=== PATIENT | female | born 1940 | race Caucasian/White ===

== ENCOUNTER → 2022-09-30 09:26 | Outpatient (BNVA) | payer MEDICARE, SELFPAY | PROVIDERS: PCP Physician Assistant; Visit Provider Internal Medicine Rheumatology | DX: M35.3 Polymyalgia rheumatica (principal); Z79.899 Other long term (current) drug therapy; M19.90 Unspecified osteoarthritis, unspecified site; Z11.59 Encounter for screening for other viral diseases; Z96.659 Presence of unspecified artificial knee joint; M18.0 Bilateral primary osteoarthritis of first carpometacarpal joints | CPT/HCPCS: 36415; 80076; 82306; 82565; 85025; 85651; 86480; 86704; 86803; 87340; 99204 ==

== ENCOUNTER → 2022-12-23 12:38 | Outpatient (BNVA) | payer MEDICARE, SELFPAY | PROVIDERS: PCP Physician Assistant; Visit Provider Internal Medicine Rheumatology | DX: Z79.899 Other long term (current) drug therapy (principal); M35.3 Polymyalgia rheumatica | CPT/HCPCS: 36415; 80076; 82310; 82565; 83735; 84100; 84132; 85025; 86140; 99214 ==

== ENCOUNTER 2022-12-29 08:41 | Outpatient (CLI) | payer MEDICARE, SELFPAY ==
--- NOTE | 2022-12-29 08:45 | USCV_ITS ---
Damion Chantal Age: 82 Gender: F : 1940 Exam Date: 12/29/2022 08:53 Ordering Phys: Aaron Mack MD Technologist: [place] [facility] [place]: PROCEDURES: The venous duplex Doppler examination of both lower extremities was performed in the standard fashion. Bilaterally, the common femoral, superficial femoral, profunda femoral, popliteal, posterior tibial, greater saphenous veins, and the peroneal trunk were identified and interrogated in the standard fashion. These veins were found to be easily compressible with spontaneous blood flow. No evidence of insufficiency or thrombus noted. FINDINGS: no dvt, bakers cyst on left with debris CONCLUSIONS No evidence of right lower extremity DVT. No evidence of left lower extremity DVT. Left popliteal cyst measuring 2.2 x 2.3 x 7.3 cm with internal debris and septations Eugene Stevenson MD (Electronically Signed) Final Date: 29 December 2022 10:03 S
== END 2022-12-29 08:42 | disposition home or self-care (01) ==
PROVIDERS: PCP Physician Assistant; Visit Provider Internal Medicine Rheumatology
DX: I82.402 Acute embolism and thrombosis of unspecified deep veins of left lower extremity (principal); M71.22 Synovial cyst of popliteal space [Baker], left knee
CPT/HCPCS: 36415; 80076; 82310; 82565; 83735; 84100; 84132; 85025; 86140; 93970; 99214

== ENCOUNTER → 2023-02-22 14:12 | Outpatient (BNVA) | payer MEDICARE, SELFPAY | PROVIDERS: PCP Physician Assistant; Visit Provider Internal Medicine Rheumatology | DX: Z79.899 Other long term (current) drug therapy (principal); M35.3 Polymyalgia rheumatica; Z96.659 Presence of unspecified artificial knee joint; M18.0 Bilateral primary osteoarthritis of first carpometacarpal joints | CPT/HCPCS: 36415; 80076; 82085; 82310; 82550; 82565; 83735; 84100; 84132; 85025; 86140; 99214 ==

== ENCOUNTER → 2023-04-13 11:30 | Outpatient (BNVA) | payer MEDICARE, SELFPAY | PROVIDERS: PCP Physician Assistant; Visit Provider Internal Medicine Rheumatology | DX: Z79.899 Other long term (current) drug therapy (principal); M35.3 Polymyalgia rheumatica; M70.60 Trochanteric bursitis, unspecified hip; Z96.659 Presence of unspecified artificial knee joint; M18.0 Bilateral primary osteoarthritis of first carpometacarpal joints | CPT/HCPCS: 99214 ==

== ENCOUNTER → 2023-08-11 13:42 | Outpatient (BNVA) | payer MEDICARE, SELFPAY | PROVIDERS: PCP Physician Assistant; Visit Provider Internal Medicine Rheumatology | DX: Z79.899 Other long term (current) drug therapy (principal); M35.3 Polymyalgia rheumatica; Z96.659 Presence of unspecified artificial knee joint; M18.0 Bilateral primary osteoarthritis of first carpometacarpal joints | CPT/HCPCS: 36415; 80076; 82565; 85025; 85651; 86140; 99214 ==

== ENCOUNTER → 2023-09-13 13:36 | Outpatient (BNVA) | payer MEDICARE, SELFPAY | PROVIDERS: PCP Physician Assistant; Visit Provider Internal Medicine Rheumatology | DX: Z79.899 Other long term (current) drug therapy (principal); M35.3 Polymyalgia rheumatica; Z96.659 Presence of unspecified artificial knee joint; M18.0 Bilateral primary osteoarthritis of first carpometacarpal joints | CPT/HCPCS: 99214 ==

== ENCOUNTER → 2023-11-22 13:55 | Outpatient (BNVA) | payer MEDICARE, SELFPAY | PROVIDERS: PCP Physician Assistant; Visit Provider Internal Medicine Rheumatology | DX: Z79.899 Other long term (current) drug therapy (principal); M35.3 Polymyalgia rheumatica; Z96.659 Presence of unspecified artificial knee joint; M18.0 Bilateral primary osteoarthritis of first carpometacarpal joints; M79.7 Fibromyalgia | CPT/HCPCS: 99214 ==

== ENCOUNTER → 2024-01-25 13:36 | Outpatient (BNVA) | payer MEDICARE, SELFPAY | PROVIDERS: PCP Physician Assistant; Visit Provider Internal Medicine Rheumatology | DX: M35.3 Polymyalgia rheumatica (principal); M18.0 Bilateral primary osteoarthritis of first carpometacarpal joints; M79.7 Fibromyalgia; M13.80 Other specified arthritis, unspecified site; Z96.651 Presence of right artificial knee joint; Z79.899 Other long term (current) drug therapy; Z11.1 Encounter for screening for respiratory tuberculosis; Z11.59 Encounter for screening for other viral diseases; Z71.85 Encounter for immunization safety counseling | CPT/HCPCS: 36415; 80076; 82565; 85025; 85651; 86140; 99214 ==

== ENCOUNTER → 2024-06-13 12:56 | Outpatient (BNVA) | payer MEDICARE, SELFPAY | PROVIDERS: PCP Physician Assistant; Visit Provider Internal Medicine Rheumatology | DX: Z79.899 Other long term (current) drug therapy (principal); M35.3 Polymyalgia rheumatica; M18.0 Bilateral primary osteoarthritis of first carpometacarpal joints; M79.7 Fibromyalgia; M06.4 Inflammatory polyarthropathy; M25.561 Pain in right knee; Z96.651 Presence of right artificial knee joint | CPT/HCPCS: 73562; 99214 ==

== ENCOUNTER → 2024-12-20 12:44 | Outpatient (BNVA) | payer MEDICARE, SELFPAY | PROVIDERS: PCP Physician Assistant; Visit Provider Internal Medicine Rheumatology | DX: Z79.899 Other long term (current) drug therapy (principal); Z96.659 Presence of unspecified artificial knee joint; M18.0 Bilateral primary osteoarthritis of first carpometacarpal joints; M79.7 Fibromyalgia; M06.041 Rheumatoid arthritis without rheumatoid factor, right hand; M06.042 Rheumatoid arthritis without rheumatoid factor, left hand; M35.3 Polymyalgia rheumatica | CPT/HCPCS: 99214 ==

== ENCOUNTER → 2025-03-14 10:33 | Outpatient (BNVA) | payer MEDICARE, SELFPAY | PROVIDERS: PCP Physician Assistant; Visit Provider Internal Medicine Rheumatology | DX: Z79.899 Other long term (current) drug therapy (principal); Z96.659 Presence of unspecified artificial knee joint; M18.0 Bilateral primary osteoarthritis of first carpometacarpal joints; M79.7 Fibromyalgia; M06.041 Rheumatoid arthritis without rheumatoid factor, right hand; M06.042 Rheumatoid arthritis without rheumatoid factor, left hand | CPT/HCPCS: 36415; 82085; 82306; 82550; 85025; 86480; 99214 ==